=== PATIENT | male | born 2000 | race Caucasian/White ===

== ENCOUNTER → 2025-01-22 16:47 | Outpatient (CLI) | payer OTHER, SELFPAY ==
--- NOTE | 2025-01-22 16:51 | DI.MRI.S_ITS ---
PROCEDURE: MR KNEE LT WO CON INDICATIONS: PAIN in left knee TECHNIQUE: Noncontrast sagittal PD fast spin echo and T2 fast spin echo with fat saturation, sagittal 3-D FLASH with fat saturation; coronal T1 spin echo and PD fast spin echo with fat saturation, and axial PD fast spin echo with fat saturation through the knee. COMPARISON: None. FINDINGS: Image quality: Somewhat limited evaluation given motion.. Menisci: The medial and lateral menisci demonstrate normal morphology and internal signal. The meniscal root ligaments appear intact. Cruciate ligaments: The anterior and posterior cruciate ligaments appear intact. Medial structures: The medial collateral ligament appears intact. The posterior oblique ligament, semimembranosus tendon insertions, oblique popliteal ligament, and meniscocapsular junction appear intact. Visualized portions of the pes anserinus tendons appear normal. No abnormal bursal fluid. Lateral structures: The lateral collateral ligament, long and short heads of the biceps femoris tendon appear intact. The popliteus tendon appears normal; the popliteofibular ligament appears intact. The posterosuperior and anteroinferior popliteomeniscal fascicles appear intact. The arcuate and fabellofibular ligaments appear intact, on either side of the lateral inferior geniculate artery. Iliotibial band appears normal. Anterior structures: The quadriceps and patellar tendons appear intact. Superolateral Hoffa's fat pad edema, raising concern for patellar maltracking. The medial and lateral patellofemoral ligaments are intact. Lateral tilt of the patella. Hypoplastic trochlea. Bones and cartilage: Cartilage of the patellofemoral compartment is grossly well maintained. There is small area of mild marrow edema in the lateral trochlea (08:16), raising concern for mild marrow contusion. The cartilage of the medial and lateral compartments are well maintained. No acute fracture. Joint space: Trace knee effusion. No popliteal cyst. Popliteal vasculature is unremarkable. No intra-articular body. IMPRESSION: 1. 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 2. Small area of mild marrow edema in the lateral trochlea, raising concern for mild marrow contusion. Dictated by: Melanie Baltazar M.D. on 01/22/2025 at 17:41 Approved by: Melanie Baltazar M.D. on 01/22/2025 at 17:50
== END ==
DX: M25.562 Pain in left knee (principal)
CPT/HCPCS: 73721